=== PATIENT | female | born 1935 | race Caucasian/White ===

== ENCOUNTER 2016-09-02 10:16 | Emergency (ER) | payer OTHER ==
--- NOTE | 2016-09-02 12:58 | DIAGNOSTIC IMAGING REPORT ---
PROCEDURE: XR KNEE 4 VIEWS - LEFT INDICATION: PAIN IN JOINT TECHNIQUE: Four views. COMPARISON: None. FINDINGS: Moderate spur formation of all three joint compartments. No fracture or suspicious osseous lesion. Moderate suprapatellar effusion. IMPRESSION: 1. Moderate osteoarthritic changes 2. Moderate effusion which may indicate internal derangement.
--- NOTE | 2016-09-02 15:29 | ED CLINICAL REPORT ---
Clinical Report - Physicians/Mid Levels [facility] [address] [place] [address] 09/02/2016 10:18 Patient: MIRI SHEPARD Time Seen: 10:29; initial patient contact. Arrived- By private vehicle. Historian- patient. HISTORY OF PRESENT ILLNESS Chief Complaint: Injury to left knee. The injury happened last night. Occurred at home. Injury secondary to other mechansim (unknown). Patient is experiencing moderate pain. Patient denies injury to the head or neck. No other injury. REVIEW OF SYSTEMS The patient complains of pain on weight bearing. She has had swelling. No tingling, weakness, numbness or skin laceration. All systems otherwise negative, except as recorded above. PAST HISTORY ( Ulcer. SURGERIES: Hysterectomy.). SOCIAL HISTORY Smoker - current status unknown. No alcohol use or drug use. ADDITIONAL NOTES The nursing notes have been reviewed. PHYSICAL EXAM Vital Signs: 09/02/2016 10:42 BP: 141/56. HR: 80. RR: 20. O2 saturation: 98%. Temp: 98.6 F. Have been reviewed. Hypertensive. Heart rate normal. Respiratory rate normal. Temperature normal. Oxygen saturation normal. Appearance: Alert. Oriented X3. No acute distress. Head: Head atraumatic. Skin: Skin intact. Skin warm and dry. Normal skin color. Extremities: Left knee: moderate tenderness. Limited ROM secondary to pain (diminished flexion and extension). Medium sized joint effusion present. Neurovascular intact distally. No erythema, ecchymosis or deformity. Gait: Limping gait. Neuro, Vascular and Tendons: Vascular status intact. Sensation intact. Motor intact. Tendon function intact. Neuro: Oriented X 3. No motor deficit. No sensory deficit. LABS, X-RAYS, AND EKG Rt Knee X-ray: No fracture. Normal alignment. Moderate degenerative joint disease. Views: AP, lateral and oblique. Technique: good. The X-rays were independently viewed by me and interpreted contemporaneously by me. Prior films were not available for comparison. PROGRESS AND PROCEDURES Arthrocentesis: Per protocol, time-out completed immediately before the procedure. Left knee. Discussed the procedure's benefits, risks and possible complications including infection, bleeding and allergic reaction. Explained alternatives to the procedure. Prep done with Shur-Clens. Local anesthesia provided using 2% lidocaine and 0.5% Marcaine. and Dexamethasone 10 mg. Sterile technique used. Landmarks identified and lateral and anterior approach taken. Joint aspirated using 23g needle. 25 mL of yellow, cloudy fluid obtained. Fluid sent for gram stain, CBC and crystal analysis. Applied bandage. No complications. Disposition: Discharged home in good and improved condition. Condition: good. CLINICAL IMPRESSION Acute flare of moderate chronic primary osteoarthritis involving the left knee. INSTRUCTIONS Apply ice for 20 minutes four times a day. Don't apply ice directly to skin. Use crutches until released. Wear knee immobilizer until released. Your Current Medications: CONTINUE TAKING THE FOLLOWING MEDICATIONS: Hydrochlorothiazide Oral. Levothyroxine Sodium Oral. Potassium Oral. Prescription Medications: Hydrocodone/APAP 5mg / 325mg: take 1 orally every 6 hours as needed for pain. Dispense fifteen (15). No refill. Diclofenac 50 mg tablets: take 1 tablet orally every 8 hours as needed for pain or stiffness. Dispense thirty (30). No refill. Follow-up: Blood pressure screening was not performed during this visit because the patient has an active diagnosis of hypertension. Follow-up with: [facility], , [address], , [place], [id number] Follow up in about two days. Call for an appointment. (Electronically signed by Marlon Scruggs Dr. 09/02/2016 16:26)
--- NOTE | 2016-09-02 15:29 | ED ORDER SUMMARY ---
..... Patient: MIRI SHEPARD OrderSheet [facility] VisitID: [id number] [place] [address] 81y, F Registration Date/Time: 09/02/2016 ORDER SHEET Weight: 74.8 kg (stated) Allergies: Sulfa Antibiotics GENERAL ORDERS: Knee 4V Left Urgent (11:10 09/02/2016 Angela Guidry) (Ack 11:11 RKaruga) (11:40 DDean R.N.) Blood Culture (No) (N/A) Urgent (13:13 09/02/2016 Angela Guidry) (13:25 Flora R.N.) CBC w Diff Urgent (13:13 09/02/2016 Angela Guidry) (13:25 Arleneck R.N.) CMP Urgent (13:13 09/02/2016 Angela Guidry) (13:25 Arleneck R.N.) MEDICATION ORDERS: Toradol IM 60 mg (NOW) (11:10 09/02/2016 Angela Guidry) (11:14 DDean R.N.) Dexamethasone IM 8 mg (For knee injection) (11:54 09/02/2016 Angela Guidry) (Ack 12:31 DDean R.N.) (15:33 DDean R.N.) Potassium Chloride PO 40 meq (NOW) (15:00 09/02/2016 Angela Guidry) (Ack 15:08 DDean R.N.) (15:32 DDean R.N.) IV FLUIDS: IV Saline Lock (13:13 09/02/2016 Angela Guidry) (13:25 Flora R.N.) ORDER SHEET NOTES: [Electronically signed by Marlon Scruggs Dr. (16:26 09/02/2016)] [Electronically signed by Dottie Cortez R.N. (20:17 09/02/2016)] [Electronically locked/signed by Dottie Cortez R.N. (20:17 09/02/2016)]
--- NOTE | 2016-09-02 15:29 | ED ORDER SUMMARY ---
..... Patient: MIRI SHEPARD OrderSheet [facility] VisitID: [id number] [place] [address] 81y, F Registration Date/Time: 09/02/2016 ORDER SHEET Weight: 74.8 kg (stated) Allergies: Sulfa Antibiotics GENERAL ORDERS: Knee 4V Left Urgent (11:10 09/02/2016 Angela Guidry) (Ack 11:11 RKaruga) (11:40 DDean R.N.) Blood Culture (No) (N/A) Urgent (13:13 09/02/2016 Angela Guidry) (13:25 Flora R.N.) CBC w Diff Urgent (13:13 09/02/2016 Angela Guidry) (13:25 Arleneck R.N.) CMP Urgent (13:13 09/02/2016 Angela Guidry) (13:25 Arleneck R.N.) MEDICATION ORDERS: Toradol IM 60 mg (NOW) (11:10 09/02/2016 Angela Guidry) (11:14 DDean R.N.) Dexamethasone IM 8 mg (For knee injection) (11:54 09/02/2016 Angela Guidry) (Ack 12:31 DDean R.N.) (15:33 DDean R.N.) Potassium Chloride PO 40 meq (NOW) (15:00 09/02/2016 Angela Guidry) (Ack 15:08 DDean R.N.) (15:32 DDean R.N.) IV FLUIDS: IV Saline Lock (13:13 09/02/2016 Angela Guidry) (13:25 Flora R.N.) ORDER SHEET NOTES: [Electronically signed by Marlon Scruggs Dr. (16:26 09/02/2016)] [Electronically signed by Dottie Cortez R.N. (20:17 09/02/2016)] [Electronically locked/signed by Dottie Cortez R.N. (20:17 09/02/2016)]
--- NOTE | 2016-09-02 15:29 | ED CLINICAL REPORT ---
Clinical Report - Physicians/Mid Levels [facility] [address] [place] [address] 09/02/2016 10:18 Patient: MIRI SHEPARD Time Seen: 10:29; initial patient contact. Arrived- By private vehicle. Historian- patient. HISTORY OF PRESENT ILLNESS Chief Complaint: Injury to left knee. The injury happened last night. Occurred at home. Injury secondary to other mechansim (unknown). Patient is experiencing moderate pain. Patient denies injury to the head or neck. No other injury. REVIEW OF SYSTEMS The patient complains of pain on weight bearing. She has had swelling. No tingling, weakness, numbness or skin laceration. All systems otherwise negative, except as recorded above. PAST HISTORY ( Ulcer. SURGERIES: Hysterectomy.). SOCIAL HISTORY Smoker - current status unknown. No alcohol use or drug use. ADDITIONAL NOTES The nursing notes have been reviewed. PHYSICAL EXAM Vital Signs: 09/02/2016 10:42 BP: 141/56. HR: 80. RR: 20. O2 saturation: 98%. Temp: 98.6 F. Have been reviewed. Hypertensive. Heart rate normal. Respiratory rate normal. Temperature normal. Oxygen saturation normal. Appearance: Alert. Oriented X3. No acute distress. Head: Head atraumatic. Skin: Skin intact. Skin warm and dry. Normal skin color. Extremities: Left knee: moderate tenderness. Limited ROM secondary to pain (diminished flexion and extension). Medium sized joint effusion present. Neurovascular intact distally. No erythema, ecchymosis or deformity. Gait: Limping gait. Neuro, Vascular and Tendons: Vascular status intact. Sensation intact. Motor intact. Tendon function intact. Neuro: Oriented X 3. No motor deficit. No sensory deficit. LABS, X-RAYS, AND EKG Rt Knee X-ray: No fracture. Normal alignment. Moderate degenerative joint disease. Views: AP, lateral and oblique. Technique: good. The X-rays were independently viewed by me and interpreted contemporaneously by me. Prior films were not available for comparison. PROGRESS AND PROCEDURES Arthrocentesis: Per protocol, time-out completed immediately before the procedure. Left knee. Discussed the procedure's benefits, risks and possible complications including infection, bleeding and allergic reaction. Explained alternatives to the procedure. Prep done with Shur-Clens. Local anesthesia provided using 2% lidocaine and 0.5% Marcaine. and Dexamethasone 10 mg. Sterile technique used. Landmarks identified and lateral and anterior approach taken. Joint aspirated using 23g needle. 25 mL of yellow, cloudy fluid obtained. Fluid sent for gram stain, CBC and crystal analysis. Applied bandage. No complications. Disposition: Discharged home in good and improved condition. Condition: good. CLINICAL IMPRESSION Acute flare of moderate chronic primary osteoarthritis involving the left knee. INSTRUCTIONS Apply ice for 20 minutes four times a day. Don't apply ice directly to skin. Use crutches until released. Wear knee immobilizer until released. Your Current Medications: CONTINUE TAKING THE FOLLOWING MEDICATIONS: Hydrochlorothiazide Oral. Levothyroxine Sodium Oral. Potassium Oral. Prescription Medications: Hydrocodone/APAP 5mg / 325mg: take 1 orally every 6 hours as needed for pain. Dispense fifteen (15). No refill. Diclofenac 50 mg tablets: take 1 tablet orally every 8 hours as needed for pain or stiffness. Dispense thirty (30). No refill. Follow-up: Blood pressure screening was not performed during this visit because the patient has an active diagnosis of hypertension. Follow-up with: [facility], , [address], , [place], [id number] Follow up in about two days. Call for an appointment. (Electronically signed by Marlon Scruggs Dr. 09/02/2016 16:26)
--- NOTE | 2016-09-02 15:29 | ED NURSING NOTES ---
Clinical Report - [facility] [address] [place] [address] 09/02/2016 10:18 Patient: MIRI SHEPARD TRIAGE Triage time 10:42. Acuity: LEVEL 3. Chief Complaint: RIGHT LOWER EXTREMITY PAIN and SWELLING. Alert. No acute distress. --10:49 Curtis Fitzpatrick R.N. 10:42 09/02/16. BP: 141/56. HR: 80. RR: 20. O2 saturation: 98%. Temp: 98.6 F. Pain level now 12/19. --10:49 Curtis Fitzpatrick R.N. Weight: 74.8 kg stated. Height/Length: 63 inches Per Patient. BMI: 29.2. --10:47 Curtis Fitzpatrick R.N. Medications Hydrochlorothiazide Oral. Levothyroxine Sodium Oral. Potassium Oral. --10:45 Curtis Fitzpatrick R.N. Allergies Sulfa Antibiotics. --10:46 Curtis Fitzpatrick R.N. History Arrived by private vehicle. Historian: patient. Accompanied by family. This occurred (Right knee pain for years, worse today). SOCIAL HX: Smoker- current status unknown. No alcohol use. NUTRITIONAL RISK ASSESSMENT: The nutritional risk assessment revealed no deficiencies. FUNCTIONAL ASSESSMENT: Functional assessment: no impairments noted. LEARNING NEEDS ASSESSMENT: The learning needs assessment revealed no barriers. FALL RISK ASSESSMENT: Fall risk assessment completed. Risk factors identified include severe pain. Fall interventions initiated. Instructed not to get up without assistance. SKIN INTEGRITY ASSESSMENT: Skin integrity risk assessment completed. No skin integrity risk identified. --10:49 Curtis Fitzpatrick R.N. PROBLEMS: Ulcer. --10:47 Curtis Fitzpatrick R.N. ADDITIONAL SURGERIES: Hysterectomy. --10:47 Curtis Fitzpatrick R.N. Interventions ID band on patient. --10:49 Curtis Fitzpatrick R.N. PHYSICAL ASSESSMENT 10:42. To room via wheelchair. GENERAL / NEURO / PSYCH: Oriented X 4. Appears in pain. EXTREMITIES: Limited ROM present. Right knee: tenderness and swelling. SKIN: Skin intact. Skin is warm and dry. --11:34 Dottie Cortez R.N. NURSING PROGRESS NOTES 10:42. Cold pack applied. Patient gowned. Reassurance given. Patient identifiers checked. Call light placed in reach. Side rails up. Bed placed in lowest position. Patient ready for evaluation- chart flagged. --11:01 Dottie Cortez R.N. 11:05. ( family at bedside. pt waiting for x-ray). --11:13 Dottie Cortez R.N. 11:09 09/02/2016 Toradol (Ketorolac Tromethamine) IM 60 mg given. Given in the right ventral gluteus. --11:14 Dottie Cortez R.N. 11:25. Patient transported to radiology by stretcher with tech. --11:40 Dottie Cortez R.N. 11:38. Patient returned from radiology by stretcher with tech. --11:40 Dottie Cortez R.N. 11:44 09/02/16. BP: 129/52. HR: 72. RR: 18. O2 saturation: 97%. Temp: deferred. Pain level now: 09/18. --11:47 Dottie Cortez R.N. 13:00. I & D: Incision and Drainage of abscess performed by ED physician. Assisted by one tech. The abscess is located on the (rt knee). Preparation: Incision and Drainage tray set up (with Betadine and lidocaine,). Procedure. (ERMD did needle extraction of senovial fluid. yellow and cloudy fluyid removed and sent to lab). --13:22 Dottie Cortez R.N. 13:00 09/02/2016 Dexamethasone IM 8 mg given. (given to ERMD to use into knee joint). --15:33 Dottie Cortez R.N. 13:20 09/02/2016 Site #1 started via IV in the left antecubital space with an 20g angiocath, with aseptic technique and good blood return; one attempt. Blood drawn: rainbow set and cultures x1. Labeled in the presence of the patient and sent to the lab. Saline lock flushed with 10 mL saline. --13:25 Garrick Vera R.N. 13:20 09/02/16. BP: 124/40. HR: 65. RR: 16. O2 saturation: 95% on room air. Temp: 98.2 F. Pain level now: 5/10. --13:33 Dottie Cortez R.N. 14:15 09/02/16. BP: 109/42. HR: 73. RR: 18. O2 saturation: 99%. Temp: deferred. Pain level now: 5/10. Additional comments: family at bedside, waiting for lab results on knee fluid . --14:24 Dottie Cortez R.N. 15:20. ( attempted to ambulate pt with walker. pt took 4 steps and stated pain was 10/10 and she needed to sit down. ERMD notified , pt assisted back to bed with 2 staff). --15:31 Dottie Cortez R.N. 15:10 09/02/2016 Potassium Chloride (Potassium Chloride ER) PO Tablets 40 meq given. Allergies verified and confirmed 5 rights. --15:32 Dottie Cortez R.N. 15:55 09/02/2016 Site #1 removed upon discharge. Bandaid applied. --20:16 Dottie Cortez R.N. 15:55 09/02/2016 IV Saline Lock Drip IV Discontinued: STOPPED upon discharge. Total amount infused: 0 mL. IV patency established. IV site checked: no pain, redness, or swelling. IV flushed thoroughly. --20:17 Dottie Cortez R.N. 16:15 09/02/16. Immobilizer applied to the left knee by nurse; distal pulses intact, sensation intact and motor function within normal limits. Patient fit with new crutches. Crutch training performed by nurse; the patient demonstrated proper use. --16:15 Lakshmi Greene R.N. 16:16 09/02/16. Assisted patient to stand and to ambulate; tolerated well (to dress). --16:16 Lakshmi Greene R.N. DISPOSITION / DISCHARGE 16:23 09/02/16. Departure time: 16:Sep 02 2016. Condition at departure: improved. The goals identified in the patient's plan of care were met. No learning barriers present. Discharge instructions provided and reviewed with the patient. Reviewed warnings (Patient verbalized awareness of warning s/sx listed in dc paperwork.). Reviewed medication(s). Prescription(s) given to the patient (Hydrocodone (patient verbalized understanding of sedation warning), diclofenac). Treatments reviewed. Reviewed referral to a primary care physician for followup. Patient verbalized understanding. Written instructions provided in [place]. The patient was discharged by the physician. She was discharged home and accompanied by family. She left the Emergency Department on crutches and via private vehicle. Family member driving. FALL RISK ASSESSMENT: Fall risk assessment completed. No fall risk identified. --16:23 Annette Lucio 16:19 09/02/16. BP: 130/48. HR: 73. RR: 14. O2 saturation: 95%. Temp: 98 F. Pain level now: 0/10. --16:23 Annette Lucio. Locked/Released at 09/02/2016 20:17 by Dottie Cortez RMoncho
--- NOTE | 2016-09-02 20:17 | ED DISCHARGE INSTRUCTIONS ---
Patient: MIRI SHEPARD General Instructions [facility] VisitID: [id number] 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 INSTRUCTIONS Apply ice for 20 minutes four times a day. Don't apply ice directly to skin. Use crutches until released. Wear knee immobilizer until released. Your Current Medications: CONTINUE TAKING THE FOLLOWING MEDICATIONS: Hydrochlorothiazide Oral. Levothyroxine Sodium Oral. Potassium Oral. Prescription Medications: Hydrocodone/APAP 5mg / 325mg: take 1 orally every 6 hours as needed for pain. Dispense fifteen (15). No refill. Diclofenac 50 mg tablets: take 1 tablet orally every 8 hours as needed for pain or stiffness. Dispense thirty (30). No refill. Follow-up: Blood pressure screening was not performed during this visit because the patient has an active diagnosis of hypertension. Follow-up with: [facility], , [address], [place], [address] Follow up in about two days. Call for an appointment. ADDITIONAL INFORMATION Osteoarthritis Osteoarthritis (also called Degenerative Joint Disease) is the most common form of arthritis in adults over 50. It is not the same as Rheumatoid Arthritis. The exact cause is not known but may be related to excess wear and tear on the joint over a long period of time. Prior injury to that joint, or repeated stress on a joint can also cause this type of arthritis. Osteoarthritis most often affects the hands, knees, spine and hips (in that order). The most common symptoms are joint stiffness, pain and swelling. Home Care: When a joint is more sore than usual, rest that joint for a day or two. Heat is very helpful. This can be provided by taking hot baths, applying a heating pad for up to 30 minutes at a time. Because symptoms are usually worse in the morning, many patients like to take a hot bath just after awakening to relax the muscle and soothe the joints. Exercise is the most important part of home treatment for osteoarthritis. This prevents the muscles and ligaments around the joint from becoming weak and helps maintain the full range of joint motion. This limits further damage to the joint. If you are overweight, this puts a lot of extra strain on weight-bearing joints of the lower back, hips, knees, feet and ankles. Losing weight will improve your arthritis symptoms in these joints. Talk to your doctor about a safe and effective weight loss program for yourself. Anti-inflammatory medicine such as ibuprofen (Advil, Motrin) or naproxen (Aleve) is often used to treat this condition. If this alone is not helping, your doctor may prescribe a stronger medicine. If narcotic pain medicines have been prescribed, they should be used in addition to anti-inflammatory drugs and only for severe pain. Follow Up with your doctor as advised by our staff. Get Prompt Medical Attention if any of the following occur: Redness or swelling of a painful joint Fever of 100.4F (38C) or higher, or as directed by your healthcare provider Worsening joint pain Crutch Walking Crutch Adjustment Make sure the crutches you use are adjusted to fit you. When you stand, there should be room to fit 2-3 fingers between the top of the crutch and your armpit. Your elbow should be slightly bent when holding the hand wet pour supervisor. Crutch Walking: Place the crutches forward 12" in front of and 6" to the side of your feet. Lean your weight forward as you push down on the handgrips. Your weight should be on your hands and yourstrong leg, not your armpits . Let your body swing through, landing on the strong leg. Advance the crutches forward again. The crutch and the injured leg should move together. Going Up Steps: ("Up with the good") With both crutches on the same step as your feet, push down on the handgrips. Balancing with very light pressure on the weak leg, let your hands support your weight as you raise your strong leg onto the next higher step. Transfer all your weight to your strong leg (still bent) as you move the crutches up to the next step alongside the strong leg. With your weight evenly balanced on the two crutches and your strong leg, straighten your strong knee as you raise the weak leg up to the next step. Going Down Steps: ("Down with the bad") With both crutches on the same step as your feet, push down on the handgrips. With your weight evenly balanced on the two crutches and your strong leg, bend your strong knee as you lower the weak leg down to the next step. Let your strong leg support you (still bent) as you move the crutches down alongside the weak leg. Transfer your weight to your hands, balancing with very light pressure on the weak leg as you lower your strong leg alongside your weak leg. Knee Immobilizer A KNEE IMMOBILIZER is used to provide support and limit movement of the knee. This will make you more comfortable as your injury heals. Home Use: 1) Unless told otherwise, the knee brace should be worn whenever you are out of bed. You may wear it in bed while asleep for the first few nights or until the pain starts to go away. Otherwise, remove the brace at night to avoid muscle stiffness from lack of joint movement. 2) You can open the velcro brace to dress, bathe and apply ice packs as directed. Get Prompt Medical Attention if any of the following occur: -- Worsening pain in the knee -- Weakness or numbness or tingling in the foot -- Increased swelling, redness or warmth of the knee joint Hydrocodone Bitartrate, Acetaminophen Oral tablet What is this medicine? ACETAMINOPHEN; HYDROCODONE (a set a STACIE radha fen; gerry droe KOE done) is a pain reliever. It is used to treat mild to moderate pain. How should I use this medicine? Take this medicine by mouth. Swallow it with a full glass of water. Follow the directions on the prescription label. If the medicine upsets your stomach, take the medicine with food or milk. Do not take more than you are told to take. Talk to your etcher apprentice regarding the use of this medicine in children. This medicine is not approved for use in children. What side effects may I notice from receiving this medicine? Side effects that you should report to your doctor or health health care coach as soon as possible: allergic reactions like skin rash, itching or hives, swelling of the face, lips, or tongue breathing problems confusion feeling faint or lightheaded, falls stomach pain yellowing of the eyes or skin Side effects that usually do not require medical attention (report to your doctor or health health care coach if they continue or are bothersome): nausea, vomiting stomach upset What may interact with this medicine? alcohol antihistamines isoniazid medicines for depression, anxiety, or psychotic disturbances medicines for sleep muscle relaxants naltrexone narcotic medicines (opiates) for pain phenobarbital ritonavir tramadol What if I miss a dose? If you miss a dose, take it as soon as you can. If it is almost time for your next dose, take only that dose. Do not take double or extra doses. Where should I keep my medicine? Keep out of the reach of children. This medicine can be abused. Keep your medicine in a safe place to protect it from theft. Do not share this medicine with anyone. Selling or giving away this medicine is dangerous and against the law. Store at room temperature between 15 and 30 degrees C (59 and 86 degrees F). Protect from light. Keep container tightly closed. Throw away any unused medicine after the expiration date. Discard unused medicine and used packaging carefully. Pets and children can be harmed if they find used or lost packages. What should I tell my health care provider before I take this medicine? They need to know if you have any of these conditions: brain tumor Crohn's disease, inflammatory bowel disease, or ulcerative colitis drink more than 3 alcohol-containing drinks per day drug abuse or addiction head injury heart or circulation problems kidney disease or problems going to the bathroom liver disease lung disease, asthma, or breathing problems an unusual or allergic reaction to acetaminophen, hydrocodone, other opioid analgesics, other medicines, foods, dyes, or preservatives or trying to get breast-feeding What should I watch for while using this medicine? Tell your doctor or health health care coach if your pain does not go away, if it gets worse, or if you have new or a different type of pain. You may develop tolerance to the medicine. Tolerance means that you will need a higher dose of the medicine for pain relief. Tolerance is normal and is expected if you take the medicine for a long time. Do not suddenly stop taking your medicine because you may develop a severe reaction. Your body becomes used to the medicine. This does NOT mean you are addicted. Addiction is a behavior related to getting and using a drug for a non-medical reason. If you have pain, you have a medical reason to take pain medicine. Your doctor will tell you how much medicine to take. If your doctor wants you to stop the medicine, the dose will be slowly lowered over time to avoid any side effects. You may get drowsy or dizzy when you first start taking the medicine or change doses. Do not drive, use machinery, or do anything that may be dangerous until you know how the medicine affects you. Stand or sit up slowly. There are different types of narcotic medicines (opiates) for pain. If you take more than one type at the same time, you may have more side effects. Give your health care provider a list of all medicines you use. Your doctor will tell you how much medicine to take. Do not take more medicine than directed. Call emergency for help if you have problems breathing. The medicine will cause constipation. Try to have a bowel movement at least every 2 to 3 days. If you do not have a bowel movement for 3 days, call your doctor or health health care coach. Too much acetaminophen can be very dangerous. Do not take Tylenol (acetaminophen) or medicines that contain acetaminophen with this medicine. Many non-prescription medicines contain acetaminophen. Always read the labels carefully. You have been given the following additional information: Osteoarthritis Crutch Walking Knee Immobilizer Hydrocodone Bitartrate, Acetaminophen Oral tablet (Electronically signed by Marlon Scruggs Dr. 09/02/2016 16:26)
--- NOTE | 2016-09-02 20:17 | ED MAR SUMMARY ---
..... Medication Administration Record [facility] [address] [place] [address] Patient: MIRI SHEPARD Visit ID: [id number] 81y, F Weight: 74.8 kg Height/Length: 63 in BMI: 29.2 ALLERGIES: Sulfa Antibiotics Given 11:09 09/02/2016 Dottie Cortez R.N. Medication Administered: TORADOL [IM] (KETOROLAC TROMETHAMINE), Dose: 60 mg IM. Medication Ordered: Toradol IM 60 mg (NOW). Given 13:00 09/02/2016 Dottie Cortez R.N. Medication Administered: DEXAMETHASONE [IM], Dose: 8 mg IM. Medication Ordered: Dexamethasone IM 8 mg (For knee injection). Given 15:10 09/02/2016 Dottie Cortez RJuanN. Medication Administered: POTASSIUM CHLORIDE [PO] (POTASSIUM CHLORIDE ER), Dose: 40 meq Tablets PO. Medication Ordered: Potassium Chloride PO 40 meq (NOW).
--- NOTE | 2016-09-02 20:17 | ED DISCHARGE INSTRUCTIONS ---
Patient: MIRI SHEPARD General Instructions [facility] VisitID: [id number] [address] [place], [place] [id number] 81y, F Registration Date/Time: 09/02/2016 Acute flare of moderate chronic primary osteoarthritis involving the left knee. INSTRUCTIONS Apply ice for 20 minutes four times a day. Don't apply ice directly to skin. Use crutches until released. Wear knee immobilizer until released. Your Current Medications: CONTINUE TAKING THE FOLLOWING MEDICATIONS: Hydrochlorothiazide Oral. Levothyroxine Sodium Oral. Potassium Oral. Prescription Medications: Hydrocodone/APAP 5mg / 325mg: take 1 orally every 6 hours as needed for pain. Dispense fifteen (15). No refill. Diclofenac 50 mg tablets: take 1 tablet orally every 8 hours as needed for pain or stiffness. Dispense thirty (30). No refill. Follow-up: Blood pressure screening was not performed during this visit because the patient has an active diagnosis of hypertension. Follow-up with: [facility], , [address], [place], [address] Follow up in about two days. Call for an appointment. ADDITIONAL INFORMATION Osteoarthritis Osteoarthritis (also called Degenerative Joint Disease) is the most common form of arthritis in adults over 50. It is not the same as Rheumatoid Arthritis. The exact cause is not known but may be related to excess wear and tear on the joint over a long period of time. Prior injury to that joint, or repeated stress on a joint can also cause this type of arthritis. Osteoarthritis most often affects the hands, knees, spine and hips (in that order). The most common symptoms are joint stiffness, pain and swelling. Home Care: When a joint is more sore than usual, rest that joint for a day or two. Heat is very helpful. This can be provided by taking hot baths, applying a heating pad for up to 30 minutes at a time. Because symptoms are usually worse in the morning, many patients like to take a hot bath just after awakening to relax the muscle and soothe the joints. Exercise is the most important part of home treatment for osteoarthritis. This prevents the muscles and ligaments around the joint from becoming weak and helps maintain the full range of joint motion. This limits further damage to the joint. If you are overweight, this puts a lot of extra strain on weight-bearing joints of the lower back, hips, knees, feet and ankles. Losing weight will improve your arthritis symptoms in these joints. Talk to your doctor about a safe and effective weight loss program for yourself. Anti-inflammatory medicine such as ibuprofen (Advil, Motrin) or naproxen (Aleve) is often used to treat this condition. If this alone is not helping, your doctor may prescribe a stronger medicine. If narcotic pain medicines have been prescribed, they should be used in addition to anti-inflammatory drugs and only for severe pain. Follow Up with your doctor as advised by our staff. Get Prompt Medical Attention if any of the following occur: Redness or swelling of a painful joint Fever of 100.4F (38C) or higher, or as directed by your healthcare provider Worsening joint pain Crutch Walking Crutch Adjustment Make sure the crutches you use are adjusted to fit you. When you stand, there should be room to fit 2-3 fingers between the top of the crutch and your armpit. Your elbow should be slightly bent when holding the hand flexographic press operator. Crutch Walking: Place the crutches forward 12" in front of and 6" to the side of your feet. Lean your weight forward as you push down on the handgrips. Your weight should be on your hands and yourstrong leg, not your armpits . Let your body swing through, landing on the strong leg. Advance the crutches forward again. The crutch and the injured leg should move together. Going Up Steps: ("Up with the good") With both crutches on the same step as your feet, push down on the handgrips. Balancing with very light pressure on the weak leg, let your hands support your weight as you raise your strong leg onto the next higher step. Transfer all your weight to your strong leg (still bent) as you move the crutches up to the next step alongside the strong leg. With your weight evenly balanced on the two crutches and your strong leg, straighten your strong knee as you raise the weak leg up to the next step. Going Down Steps: ("Down with the bad") With both crutches on the same step as your feet, push down on the handgrips. With your weight evenly balanced on the two crutches and your strong leg, bend your strong knee as you lower the weak leg down to the next step. Let your strong leg support you (still bent) as you move the crutches down alongside the weak leg. Transfer your weight to your hands, balancing with very light pressure on the weak leg as you lower your strong leg alongside your weak leg. Knee Immobilizer A KNEE IMMOBILIZER is used to provide support and limit movement of the knee. This will make you more comfortable as your injury heals. Home Use: 1) Unless told otherwise, the knee brace should be worn whenever you are out of bed. You may wear it in bed while asleep for the first few nights or until the pain starts to go away. Otherwise, remove the brace at night to avoid muscle stiffness from lack of joint movement. 2) You can open the velcro brace to dress, bathe and apply ice packs as directed. Get Prompt Medical Attention if any of the following occur: -- Worsening pain in the knee -- Weakness or numbness or tingling in the foot -- Increased swelling, redness or warmth of the knee joint Hydrocodone Bitartrate, Acetaminophen Oral tablet What is this medicine? ACETAMINOPHEN; HYDROCODONE (a set a STACIE radha fen; gerry droe KOE done) is a pain reliever. It is used to treat mild to moderate pain. How should I use this medicine? Take this medicine by mouth. Swallow it with a full glass of water. Follow the directions on the prescription label. If the medicine upsets your stomach, take the medicine with food or milk. Do not take more than you are told to take. Talk to your adult school counselor regarding the use of this medicine in children. This medicine is not approved for use in children. What side effects may I notice from receiving this medicine? Side effects that you should report to your doctor or health cattle care worker as soon as possible: allergic reactions like skin rash, itching or hives, swelling of the face, lips, or tongue breathing problems confusion feeling faint or lightheaded, falls stomach pain yellowing of the eyes or skin Side effects that usually do not require medical attention (report to your doctor or health cattle care worker if they continue or are bothersome): nausea, vomiting stomach upset What may interact with this medicine? alcohol antihistamines isoniazid medicines for depression, anxiety, or psychotic disturbances medicines for sleep muscle relaxants naltrexone narcotic medicines (opiates) for pain phenobarbital ritonavir tramadol What if I miss a dose? If you miss a dose, take it as soon as you can. If it is almost time for your next dose, take only that dose. Do not take double or extra doses. Where should I keep my medicine? Keep out of the reach of children. This medicine can be abused. Keep your medicine in a safe place to protect it from theft. Do not share this medicine with anyone. Selling or giving away this medicine is dangerous and against the law. Store at room temperature between 15 and 30 degrees C (59 and 86 degrees F). Protect from light. Keep container tightly closed. Throw away any unused medicine after the expiration date. Discard unused medicine and used packaging carefully. Pets and children can be harmed if they find used or lost packages. What should I tell my health care provider before I take this medicine? They need to know if you have any of these conditions: brain tumor Crohn's disease, inflammatory bowel disease, or ulcerative colitis drink more than 3 alcohol-containing drinks per day drug abuse or addiction head injury heart or circulation problems kidney disease or problems going to the bathroom liver disease lung disease, asthma, or breathing problems an unusual or allergic reaction to acetaminophen, hydrocodone, other opioid analgesics, other medicines, foods, dyes, or preservatives or trying to get breast-feeding What should I watch for while using this medicine? Tell your doctor or health cattle care worker if your pain does not go away, if it gets worse, or if you have new or a different type of pain. You may develop tolerance to the medicine. Tolerance means that you will need a higher dose of the medicine for pain relief. Tolerance is normal and is expected if you take the medicine for a long time. Do not suddenly stop taking your medicine because you may develop a severe reaction. Your body becomes used to the medicine. This does NOT mean you are addicted. Addiction is a behavior related to getting and using a drug for a non-medical reason. If you have pain, you have a medical reason to take pain medicine. Your doctor will tell you how much medicine to take. If your doctor wants you to stop the medicine, the dose will be slowly lowered over time to avoid any side effects. You may get drowsy or dizzy when you first start taking the medicine or change doses. Do not drive, use machinery, or do anything that may be dangerous until you know how the medicine affects you. Stand or sit up slowly. There are different types of narcotic medicines (opiates) for pain. If you take more than one type at the same time, you may have more side effects. Give your health care provider a list of all medicines you use. Your doctor will tell you how much medicine to take. Do not take more medicine than directed. Call emergency for help if you have problems breathing. The medicine will cause constipation. Try to have a bowel movement at least every 2 to 3 days. If you do not have a bowel movement for 3 days, call your doctor or health cattle care worker. Too much acetaminophen can be very dangerous. Do not take Tylenol (acetaminophen) or medicines that contain acetaminophen with this medicine. Many non-prescription medicines contain acetaminophen. Always read the labels carefully. You have been given the following additional information: Osteoarthritis Crutch Walking Knee Immobilizer Hydrocodone Bitartrate, Acetaminophen Oral tablet (Electronically signed by Marlon Scruggs Dr. 09/02/2016 16:26)
--- NOTE | 2016-09-02 20:17 | ED MED RECONCILIATION SUMMARY ---
Patient: MIRI SHEPARD Medication Reconciliation Report [facility] VisitID: [id number] [address] [place] [address] 81y, F Registration Date/Time: 09/02/2016 Weight: 74.8 kg Height/Length: 63 in. BMI: 29.2 ALLERGIES: Sulfa Antibiotics The patient's Home Medications are listed below: CONTINUE TAKING THE FOLLOWING MEDICATIONS: Hydrochlorothiazide Oral Levothyroxine Sodium Oral Potassium Oral The source(s) of the original Home Medication information: Not obtained. The following Medications were given to the patient in the Emergency Department: Toradol [IM] IM 60 mg, administered: 09/02/2016 11:09:00 AM Potassium Chloride [PO] PO 40 meq, administered: 09/02/2016 3:10:00 PM Dexamethasone [IM] IM 8 mg, administered: 09/02/2016 1:00:00 PM The following Medications were prescribed to the patient: Hydrocodone/APAP 5mg / 325mg: take 1 orally every 6 hours as needed for pain. Dispense fifteen (15). No refill. -- Marlon Scruggs Dr. Diclofenac 50 mg tablets: take 1 tablet orally every 8 hours as needed for pain or stiffness. Dispense thirty (30). No refill. -- Marlon Scruggs Dr.
--- NOTE | 2016-09-02 20:17 | ED MAR SUMMARY ---
..... Medication Administration Record [facility] [address] [place] [address] Patient: MIRI SHEPARD Visit ID: [id number] 81y, F Weight: 74.8 kg Height/Length: 63 in BMI: 29.2 ALLERGIES: Sulfa Antibiotics Given 11:09 09/02/2016 Dottie Cortez R.N. Medication Administered: TORADOL [IM] (KETOROLAC TROMETHAMINE), Dose: 60 mg IM. Medication Ordered: Toradol IM 60 mg (NOW). Given 13:00 09/02/2016 Dottie Cortez R.N. Medication Administered: DEXAMETHASONE [IM], Dose: 8 mg IM. Medication Ordered: Dexamethasone IM 8 mg (For knee injection). Given 15:10 09/02/2016 Dottie Cortez RJuanN. Medication Administered: POTASSIUM CHLORIDE [PO] (POTASSIUM CHLORIDE ER), Dose: 40 meq Tablets PO. Medication Ordered: Potassium Chloride PO 40 meq (NOW).
--- NOTE | 2016-09-02 20:17 | ED MED RECONCILIATION SUMMARY ---
Patient: MIRI SHEPARD Medication Reconciliation Report [facility] VisitID: [id number] [address] [place] [address] 81y, F Registration Date/Time: 09/02/2016 Weight: 74.8 kg Height/Length: 63 in. BMI: 29.2 ALLERGIES: Sulfa Antibiotics The patient's Home Medications are listed below: CONTINUE TAKING THE FOLLOWING MEDICATIONS: Hydrochlorothiazide Oral Levothyroxine Sodium Oral Potassium Oral The source(s) of the original Home Medication information: Not obtained. The following Medications were given to the patient in the Emergency Department: Toradol [IM] IM 60 mg, administered: 09/02/2016 11:09:00 AM Potassium Chloride [PO] PO 40 meq, administered: 09/02/2016 3:10:00 PM Dexamethasone [IM] IM 8 mg, administered: 09/02/2016 1:00:00 PM The following Medications were prescribed to the patient: Hydrocodone/APAP 5mg / 325mg: take 1 orally every 6 hours as needed for pain. Dispense fifteen (15). No refill. -- Marlon Scruggs Dr. Diclofenac 50 mg tablets: take 1 tablet orally every 8 hours as needed for pain or stiffness. Dispense thirty (30). No refill. -- Marlon Scruggs Dr.
== END 2016-09-02 16:22 | disposition home or self-care (01) ==
LOC: ED SRH 10:16
DX: M17.12 Unilateral primary osteoarthritis, left knee (principal); X58.XXXA Exposure to other specified factors, initial encounter; Y93.9 Activity, unspecified; Y92.009 Unspecified place in unspecified non-institutional (private) residence as the place of occurrence of the external cause; Y99.9 Unspecified external cause status